=== PATIENT | male | born 1960 | race Caucasian/White ===

== ENCOUNTER → 2019-05-29 | Outpatient (CLI) | payer MEDICARE ==
[2019-05-29 14:35] VITALS: BP 123/80; PULSE 80; TEMP 98.9; BMI 34.2
--- NOTE | 2019-05-29 15:31 | P.HPBAR ---
Bariatric H&P - History & Physicial H&P Date: 05/29/19 History & Physicial: Visit/CC: gastric sleeve consult Patient initial contact: Initial weight: 104.598 kg Initial weight in pounds: 230.60 Height: 5 ft 8.75 in Initial BMI: 34.2 Last weight: Current weight: 104.598 kg Current weight in pounds: 230.60 Current BMI: 34.2 [place] body weight (based on NIH guidelines): 71.894 kg Excess body weight loss: 0.0% The patient is a 58 year-old M who presents for Bariatric Assessment. Patient resents today for sleeve gastrectomy constipation. His BMI is 35. He has had lifetime problems obesity. He developed severe comorbidities related to morbid obesity. Patient is excellent understanding of sleeve gastrectomy. We went over the risks and benefits of the procedure. Past Medical History Past Medical History: Diabetes Mellitus, GERD/Reflux, Hyperlipidemia, Hypertension, Sleep Apnea/CPAP/BIPAP Additional Past Medical History / Comment(s): Type 2 DM, History of Any Multi-Drug Resistant Organisms: None Reported Past Surgical History: Hernia Repair, Orthopedic Surgery Additional Past Surgical History / Comment(s): bilateral inguiinal hernia repair (right x2 due to tangled mesh), umbilical hernia repair, right testicle removed secondary to tangled inguinal hernia mesh, right shoulder torn muscle repair, right ankle fusion, right heel repair secondary to broken heel, right foot fusion X3 (first 2 times "didn't take"), Left knee meniscus removed, on 06/14/19 patient states he is going to have a nerve surgery on his right foot. Past Anesthesia/Blood Transfusion Reactions: No Reported Reaction Additional Past Anesthesia/Blood Transfusion Reaction / Comm: NO blood transfusion to date Smoking Status: Former smoker Past Alcohol Use History: Rare Additional Past Alcohol Use History / Comment(s): started smoking at age 12, quit at age 57. Smoked 2 ppd. x 35 years Past Drug Use History: None Reported - Past Family History Father Family Medical History: Cancer Additional Family Medical History / Comment(s): Prostate cancer Mother Additional Family Medical History / Comment(s): Patient's mother at age 82 from colitis Surgical - Exam Vital Signs Temp Pulse BP 98.9 F 80 123/80 05/29/19 14:29 05/29/19 14:29 05/29/19 14:29 - General well developed, well nourished, no distress - Eyes PERRL - ENT normal pinna - Neck no masses - Respiratory normal expansion - Cardiovascular Rhythm: regular - Abdomen Abdomen: soft, non tender Bariatric Assessment & Plan Plan: Morbid obesity. Patient will undergo EGD. He'll follow-up after his gastroscope was then performed. Bariatric Checklist Checklist: Plan: Checklist: EGD: 1. Hiatal hernia: 2. H. Pylori: HgbA1c: Vitamin D: Smoking: Former smoker Primary care physician referral: Dr. Juan Alberto Levi ([facility], [place], [address]) Psychiatry clearance: Cardiology clearance: Sleep study: Diet journal: VTE risk score: VTE risk level: Rehab needs at discharge:
[2019-05-29 17:10] LABS: HCT 36.8 % (39.0-53.0); HGB 12.2 gm/dL (13.0-17.5); MCH 29.8 pg (25.0-35.0); MCHC 33.2 g/dL (31.0-37.0); MCV 89.7 fL (80.0-100.0); Mean Platelet Volume 7.7; Platelet Count 250 k/uL (150-450); RDW 14.2 % (11.5-15.5); WBC 12.8 k/uL (3.8-10.6)
[2019-05-30 02:32] LABS: African American GFR (CKD) 75.7 (60.0-200.0); Albumin 4.7 g/dL (3.80-4.90); Albumin/Globulin Ratio 2.14 (1.60-3.17); Anion Gap 15.2 mmol/L (4.00-12.00); Calcium 8.8 mg/dL (8.7-10.3); Carbon Dioxide 21.8 mmol/L (21.6-31.8); Globulin 2.2 g/dL (1.6-3.3); Non-African American GFR(CKD) 65.3 (60.0-200.0); Potassium 3.5 mmol/L (3.5-5.5); Total Bilirubin 0.3 mg/dL (0.2-1.2); Total Protein 6.9 g/dL (6.2-8.2)
[2019-05-30 02:42] LABS: Folate, Serum 6.6 ng/mL
[2019-05-30 04:36] LABS: Hemoglobin A1C 7.5 % (4.0-6.0)
== END | disposition home or self-care (01) ==
LOC: BARWHC3 13:27
PROVIDERS: ATTEND Surgery
DX: E66.01 Morbid (severe) obesity due to excess calories (principal); E88.81 Metabolic syndrome and other insulin resistance; Z68.34 Body mass index [BMI] 34.0-34.9, adult; Z87.891 Personal history of nicotine dependence; Z98.890 Other specified postprocedural states; E55.9 Vitamin D deficiency, unspecified
CPT/HCPCS: 84425; 80053; 82607; 82746; 85027; 82306; 83036; 93005; 36415; G0463; 99201

== ENCOUNTER 2019-07-27 07:06 | Day surgery (SDC) | payer MEDICARE ==
[2019-07-25 11:42] VITALS: BMI 34.7
[~2019-07-27 07:06] MED LIST: LACTATED RINGERS 1,000 ML IV SCH; LIDOCAINE 1% (10MG/ML) FOR IV START INTRADERMA PRN
[2019-07-27 07:32] LABS: Glucose,Whole Blood 135 mg/dL (75-99)
[2019-07-27 07:35] VITALS: TEMP 97.2
[2019-07-27] MEDS ORDERED: LIDOCAINE 1% INJ 10MG/ML (20 ML MDV) ONE (07:45)
[2019-07-27] MEDS ORDERED: KETAMINE 10 MG/ML 20 ML VIAL ONE (07:45)
[2019-07-27] MEDS ORDERED: GLYCOPYRROLATE 0.2 MG/ML 2 ML VIAL ONE (07:45)
[2019-07-27] MEDS ORDERED: MIDAZOLAM 2 MG/2 ML VIAL ONE (07:45)
[2019-07-27] MEDS ORDERED: PROPOFOL 10 MG/ML 20 ML VIAL IV ONE (07:45)
--- NOTE | 2019-07-27 07:55 | P.GSHP ---
History of Present Illness H&P Date: 07/27/19 Chief Complaint: Morbid obesity, GERD This a 58-year-old male who presents today for EGD. Patient underwent workup for sleeve gastrectomy. He is morbidly obese BMI 35. He's had some GERD issues. Past Medical History Past Medical History: COPD, Diabetes Mellitus, Eye Disorder, GERD/Reflux, Hyperlipidemia, Hypertension, Sleep Apnea/CPAP/BIPAP Additional Past Medical History / Comment(s): macular degeneration left eye History of Any Multi-Drug Resistant Organisms: None Reported Past Surgical History: Hernia Repair, Orthopedic Surgery, Tonsillectomy Additional Past Surgical History / Comment(s): bilateral inguiinal hernia repair (right x2 due to tangled mesh), umbilical hernia repair, right testicle removed secondary to tangled inguinal hernia mesh, right shoulder torn muscle repair, right ankle fusion, right heel repair secondary to broken heel, right foot fusion X3 (first 2 times "didn't take"), Left knee meniscus removed, nerve surgery rt foot, left eye injection for macular degeneration Past Anesthesia/Blood Transfusion Reactions: Motion Sickness Additional Past Anesthesia/Blood Transfusion Reaction / Comment(s): NO blood transfusion to date Smoking Status: Former smoker - Past Family History Father Family Medical History: Cancer Additional Family Medical History / Comment(s): Prostate cancer Mother Additional Family Medical History / Comment(s): Patient's mother at age 82 from colitis Medications and Allergies Home Medications Medication Instructions Recorded Confirmed Type Omeprazole 40 mg PO DAILY 05/29/19 07/27/19 History amLODIPine [Norvasc] 10 mg PO DAILY 05/29/19 07/27/19 History Cholecalciferol [Vitamin D3 (25 5,000 unit PO BID 07/25/19 07/27/19 History Mcg = 1000 Iu)] Escitalopram [Lexapro] 10 mg PO HS 07/25/19 07/27/19 History Insulin Aspart (Niacinamide) 5 units SQ TID-W/MEALS 07/25/19 07/27/19 History [Fiasp 100 Unit/ml Flextouch] Insulin Degludec [Tresiba 20 units SQ QAM 07/25/19 07/27/19 History Flextouch U-200] Losartan Potassium [Cozaar] 100 mg PO DAILY 07/25/19 07/27/19 History Pravastatin Sodium [Pravachol] 10 mg PO HS 07/25/19 07/27/19 History Allergies Allergy/AdvReac Type Severity Reaction Status Date / Time No Known Allergies Allergy Verified 07/25/19 11:29 Surgical - Exam Vital Signs Temp Pulse Resp BP Pulse Ox 97.2 F L 67 18 130/72 96 07/27/19 07:22 07/27/19 07:22 07/27/19 07:22 07/27/19 07:22 07/27/19 07:22 - General well developed, well nourished, no distress - Eyes PERRL - ENT normal pinna - Neck no masses - Respiratory normal expansion - Cardiovascular Rhythm: regular - Abdomen Abdomen: soft, non tender Results - Labs Abnormal Lab Results - Last 24 Hours (Table) 07/27/19 Range/Units 07:28 POC Glucose (mg/dL) 135 H (75-99) mg/dL Assessment and Plan Assessment: GERD Morbid obesity We'll perform EGD.
--- NOTE | 2019-07-27 08:07 | P.OP ---
Date of Procedure: 07/27/19 Preoperative Diagnosis: GERD Morbid obesity Postoperative Diagnosis: Antral gastritis Morbid obesity BMI 35 Procedure(s) Performed: EGD Anesthesia: MAC Surgeon: Zechariah Chavez Pathology: other (Antrum) Condition: stable Disposition: PACU Description of Procedure: The patient's placed on the endoscopy table in the lateral position. He received IV sedation. The gastroscope placed oropharynx and passed in the esophagus and into the stomach. Scope then placed through the pylorus. The first and second portion of the duodenum appeared normal. Scope was then brought back and the antrum was mildly inflamed. Biopsies performed. The scope was unretroflexed and remainder some appeared normal. The GE junction was at 40 cm. The distal esophagus appeared normal. The proximal esophagus appeared normal. Scope was withdrawn for patient.
[2019-07-27 08:30] VITALS: BP 135/68; PULSE 91; RESP 16
== END 2019-07-27 08:32 | disposition home or self-care (01) ==
LOC: ORWHC2ENDO 07:06
PROVIDERS: ATTEND Surgery
DX: K21.9 Gastro-esophageal reflux disease without esophagitis (principal); E66.01 Morbid (severe) obesity due to excess calories; I10 Essential (primary) hypertension; E11.9 Type 2 diabetes mellitus without complications; J44.9 Chronic obstructive pulmonary disease, unspecified; E78.5 Hyperlipidemia, unspecified; G47.33 Obstructive sleep apnea (adult) (pediatric); H35.30 Unspecified macular degeneration; Z99.89 Dependence on other enabling machines and devices; Z79.4 Long term (current) use of insulin; Z79.899 Other long term (current) drug therapy; Z68.34 Body mass index [BMI] 34.0-34.9, adult; Z98.890 Other specified postprocedural states; Z90.89 Acquired absence of other organs; Z90.79 Acquired absence of other genital organ(s); Z98.1 Arthrodesis status; Z87.891 Personal history of nicotine dependence; Z80.42 Family history of malignant neoplasm of prostate; Z83.79 Family history of other diseases of the digestive system
CPT/HCPCS: 88305; 43239; J2250; J2001; J2704

== ENCOUNTER → 2019-10-09 | Outpatient (CLI) | payer MEDICARE ==
[2019-10-09 11:41] VITALS: BMI 35.0
== END | disposition home or self-care (01) ==
LOC: BARWHC3 08:35
PROVIDERS: ATTEND Surgery
DX: E66.01 Morbid (severe) obesity due to excess calories (principal); E11.65 Type 2 diabetes mellitus with hyperglycemia; Z68.35 Body mass index [BMI] 35.0-35.9, adult
CPT/HCPCS: 97804